=== PATIENT | male | born 1975 | race Caucasian/White ===

== ENCOUNTER 2017-07-07 09:11 | Emergency (ER) | payer BC ==
[2017-07-07] MEDS ORDERED: Ondansetron ODT 4 MG TAB ONE (09:24)
[2017-07-07] MEDS ORDERED: Ketorolac Tromethamine 30 MG/ML VIAL ONE (09:29)
[2017-07-07] MEDS ORDERED: Morphine 4 MG/ML VIAL ONE (09:29)
[2017-07-07 09:36] LABS: #Eosinphils 0.2 thou/uL (0.0-0.7); #Lymphocytes 1.5 thou/uL (1.20-3.40); #Monocytes 0.6 thou/uL (0.11-0.59); #Neutrophils 8.4 thou/uL (1.40-6.50); %Basophils 0.3 % (0.0-1.0); %Eosinophils 1.9 % (0.0-10.0); %Monocytes 5.9 % (0.0-10.0); %Neutrophils 77.9 % (42.0-75.0); Hemoglobin 16.7 g/dL (14.0-18.0); Mean Corpuscular HGB CONC 34.9 g/dL (32.0-36.0); Mean Corpuscular Hemoglobin 30.5 pg (27.0-31.0); Mean Corpuscular Volume 87.2 fl (80.0-94.0); Mean Platelet Volume 6.6 fL (7.4-10.4); Platelet Count 259 thou/uL (130-400); Red Blood Cell (RBC) Count 5.49 mill/uL (4.70-6.10); White Blood Cell (WBC) Count 10.8 thou/uL (4.8-10.8)
[2017-07-07 09:57] LABS: ALT (SGPT) 28 U/L (8-55); AST (SGOT) 24 U/L (5-34); Albumin 4.5 g/dL (3.5-5.0); Alkaline Phosphatase 83 U/L (40-150); Anion Gap 13 mmol/L (10-20); BUN (Urea Nitrogen) 18 mg/dL (8.9-20.6); Bilirubin, Total 0.9 mg/dL (0.2-1.2); Calc. Creatinine Clearance 0 mL/min (70-130); Calcium 9.7 mg/dL (7.8-10.44); Carbon Dioxide 24 mmol/L (22-29); Chloride 108 mmol/L (98-107); Estimated GFR-MDRD 60; Globulin 2.8 g/dL (2.4-3.5); Glucose 114 mg/dL (70-105); Potassium 4.1 mmol/L (3.5-5.1); Protein, Total 7.3 g/dL (6.0-8.3); Sodium 141 mmol/L (136-145)
--- NOTE | 2017-07-07 10:13 | CT ---
CT ABDOMEN AND PELVIS WITHOUT CONTRAST: Date: 07/07/17 HISTORY: Abdominal pain and vomiting. FINDINGS: Absence of IV and oral contrast reduces the sensitivity of exam, particularly for evaluation of solid organs and bowel. The lung bases are clear. No free air or free fluid is seen in the abdomen or pelvis. No calcified ga llstones are identified. There are a couple of punctate calculi in the right kidney. There is mild right-sided hydroureteronep hrosis secondary to a 3.0 mm calculus at the right UVJ. No calculi seen in the left kidney or the lef t ureter. The appendix is normal. 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 IMPRESSION: 1. 3.0 mm right UVJ calculus with mild ipsilateral hydroureteronephrosis. 2. Punctate calculi in the right kidney. POS: [facility]
[2017-07-07 11:36] LABS: Bilirubin Negative (Negative); Blood, Urine Negative (Negative); Clarity CLOUDY (Clear); Glucose, Urine (Dipstick) Negative (Negative); Leukocyte Negative (Negative); Nitrite Negative (Negative); Protein, Urine (Dipstick) Negative (Neg-Trace); Specific Gravity, Urine 1.017 (1.002-1.036); Urobilinogen 0.2 mg/dL (0.2-1.0); pH, Urine 7.5 (5.0-9.0)
[2017-07-07] MEDS ORDERED: Morphine 10 MG/ML VIAL ONE ×2 (12:17→13:29)
[2017-07-07] MEDS ORDERED: Promethazine HCl 25 MG/ML VIAL ONE (13:30)
[2017-07-07] MEDS ORDERED: Acetaminophen 500 MG TAB ONE (13:30)
== END 2017-07-07 13:50 | disposition home or self-care (01) ==
LOC: ERS 09:11
DX: N13.2 Hydronephrosis with renal and ureteral calculous obstruction (principal); I10 Essential (primary) hypertension; F32.9 Major depressive disorder, single episode, unspecified; F98.8 Other specified behavioral and emotional disorders with onset usually occurring in childhood and adolescence; Z79.899 Other long term (current) drug therapy
CPT/HCPCS: 36415; 74176; 80053; 81003; 85025; 96361; 96372; 96374; 96375; 96376; J1885; J2270; J2550; Q0162